=== PATIENT | female | born 1955 | race Two or more races ===

== ENCOUNTER 2018-08-08 12:24 | Outpatient (CLI) | payer OTHER | END 2018-08-08 12:35 | disposition home or self-care (01) | LOC: LAB 12:24 | DX: C73 Malignant neoplasm of thyroid gland (principal); E89.0 Postprocedural hypothyroidism ==

== ENCOUNTER 2018-08-08 15:08 | Outpatient (CLI) | payer OTHER | END 2018-08-08 15:16 | disposition home or self-care (01) | LOC: SONOGRAMA 15:08 | DX: C73 Malignant neoplasm of thyroid gland (principal) ==

== ENCOUNTER 2019-12-02 07:34 | Outpatient (CLI) | payer OTHER | END 2019-12-02 15:00 | disposition home or self-care (01) | LOC: LAB 07:34 | DX: E89.0 Postprocedural hypothyroidism (principal); C73 Malignant neoplasm of thyroid gland ==

== ENCOUNTER 2021-02-16 09:46 | Outpatient (CLI) | payer OTHER | END 2021-02-16 18:00 | disposition home or self-care (01) | LOC: LAB 09:46 | PROVIDERS: ATTEND Internal Medicine Endocrinology, Diabetes & Metabolism | DX: C73 Malignant neoplasm of thyroid gland (principal); E89.0 Postprocedural hypothyroidism ==